=== PATIENT | female | born 1975 | race Caucasian/White ===

== ENCOUNTER 2022-08-12 11:47 | Emergency (ER) | payer OTHER, SELFPAY ==
--- NOTE | ~2022-08-12 | XR_ITS ---
XR wrist RT min 3V 08/12/2022 12:12 Indication: Right wrist pain Procedure: 4 views right wrist Comparison: No prior studies for comparison. Findings: There is an age-indeterminate nondisplaced radial styloid fracture. There is a chronic unun ited ulnar styloid fracture. Mild soft tissue swelling adjacent to the ulnar styloid. No foreign bodi es. Impression: 1: Age-indeterminate nondisplaced radial styloid fracture. 2: Chronic ununited ulnar styloid fracture. Reviewed, dictated and finalized at location B. Impression: 1: Age-indeterminate nondisplaced radial styloid fracture. 2: Chronic ununited ulnar styloid fracture.
[2022-08-12 11:57] VITALS: BP 111/71; PULSE 55; RESP 18; TEMP 36.8; O2SAT 99
--- NOTE | 2022-08-12 12:28 | PC.NURSE ---
PT DECLINED ICE FOR COMFORT
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
== END 2022-08-12 13:00 | disposition home or self-care (01) ==
PROVIDERS: Emergency Provider Registered Nurse; PCP Family Medicine
DX: S66.911A Strain of unspecified muscle, fascia and tendon at wrist and hand level, right hand, initial encounter (principal); X58.XXXA Exposure to other specified factors, initial encounter; F17.210 Nicotine dependence, cigarettes, uncomplicated; F41.9 Anxiety disorder, unspecified; I25.2 Old myocardial infarction; Z95.5 Presence of coronary angioplasty implant and graft
CPT/HCPCS: 73110; 99203; 99213; G0463

== ENCOUNTER 2025-04-24 12:35 | Emergency (ER) | payer OTHER, SELFPAY ==
--- OUTSIDE RECORDS SUMMARY | 2025-04-24 12:38 | XMS_ITS | Clinical Summary ---
Author Organization [facility] Address [address] [address] Care Team Providers Care Swing Type Lathe Operator Name Role Phone Unavailable Primary Care Provider Unavailabl e Source Comments [facility],non-owned Affiliates and Associated Physician Practices is amultiple site organization consisting of ambulatory clinics and hospital sitesin [place], [place]. This disclosure is being madepursuant to the Care Everywhere program and may not contain all information available regarding this patient. 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 Gender Identity Not on file Sexual Orientation Not on file Plan of Treatment Health Maintenance Due Date Last Done Comments COLOGUARD (AGES 45-75) - COL ON CA SCREENING 1977 COLON MONITORING 1977 COLONOSCOPY - COLON CA SCREENING 1977 CT COLONOGRAPHY - COLON CA SCREENING 1977 Colorectal Cancer Screening 1977 FIT - COLON CA SCREENING 1977 FLEX SIG - COLON CA SCREENING 1977 LIPID TESTING 1977 MAMMOGRAM 1977 HIV SCREENING 01/16/1992 HEPATITIS C SCREENING 01/11/1995 HEPATITIS B VACCINE (1 of 3 - 19+ 3-dose series) 01/16/1996 DTAP/TDAP/TD VACCINES (2 - T d or Tdap) 10/09/2021 10/10/2011 DEPRESSION SCREENING 05/03/2024 COVID-19 VACCINE (2024-2 6 season) 2025 INFLUENZA VACCINE (#1) 2025 ZOSTER VACCINE (1 of 2) 2027 HIB VACCINE Aged Out No longer eligi ble based on patient's age to complete this topic HPV VACCINE Aged Out No longer eligi ble based on patient's age to complete this topic MENINGOCOCCAL (Group B) VACC INE SHARED DECISION-MAKING Aged Out No longer eligibl e based on patient's age to complete this topic MENINGOCOCCAL GROUPS A/C/Y/W VACCINE Aged Out No longer eligible b ased on patient's age to complete this topic PNEUMOCOCCAL VACCINE Aged Out No long er eligible based on patient's age to complete this topic [facility] [employer]AN
--- OUTSIDE RECORDS SUMMARY | 2025-04-24 12:38 | XMS_ITS | Clinical Summary ---
Author Organization [facility] Address [address] [place] [address] Phone Care Team Providers Care Optical Coating Technician Name Role Phone Dex Becerra MD Primary Care Provider [phone] Allergies Active Allergy Reactions Criticality Noted Date Comments Codeine Other (see Comments) 08/07/2015 convulsions Metoprolol Other (see Comments) 08/09/2015 Loss of muscle control Medications carBAMazepine (TEGRETOL) 200 MG Tablet Take 200 mg by mouth 3 times daily. 6 Active isosorbide mononitrate (IMDUR) 60 MG TABLET SR 24 HR Take 60 mg by mouth 2 times daily. 6 Active venlafaxine (EFFEXOR) 75 MG Tablet Take 75 mg by mouth 2 times daily. 5 Active clopidogrel (PLAVIX) 75 MG Tablet Take 75 mg by mouth every 48 hours. 6 Active pantoprazole (PROTONIX) 40 MG Tablet Delayed Response Take 40 mg by mouth daily. 6 Active atorvastatin (LIPITOR) 40 MG Tablet Take 1 Tab by mouth nightly. 90 Tab 3 6 Active metoprolol tartrate (LOPRESSOR) 25 MG Tablet Take 1 Tab by mouth 2 times daily. 180 Tab 3 6 Active ondansetron (ZOFRAN) 4 MG Tablet Take 1 Tab by mouth every 8 hours as needed for Nausea. 10 Tab 0 7 Active dicyclomine (BENTYL) 20 MG Tablet Take 1 Tab by mouth every 6 hours as needed for Pain or Other (ABDOMINAL CRAMPING). 60 Tab 7 Active potassium chloride SA (KLORCON M) 20 MEQ Tablet Controlled Release Take 1 Tab by mouth 2 times daily. 60 Tab 7 Active ibuprofen (MOTRIN) 600 MG Tablet Take 1 Tab by mouth every 6 hours as needed for Pain. 40 Tab 7 Active nebivolol (BYSTOLIC) 5 MG Tablet Take 5 mg by mouth daily. Active citalopram (CELEXA) 40 MG Tablet Take 40 mg by mouth daily. Active predniSONE (DELTASONE) 10 MG Tablet Take 1 Tab by mouth daily. TAKE 4 TABLETS PO DAILY X 3 DAYS THEN TAKE 3 TABLETS PO DAILY X 3 DAYS THEN TAKE 2 TABLETS PO DAILY X 3 DAYS THEN TAKE 1 TABLET PO DAILY X 3 DAYS 30 Tab 8 Active methylPREDNISolo ne (MEDROL DOSPACK) 4 MG Tablet Therapy Pack See product package insert for dosing schedule 21 Tab 8 Active Active Problems Problem Noted Date Diagnosed Date GERD (gastroesophageal reflux disease) 6 Coronary artery disease of n ative artery of [place] heart with stable angina pectoris 08/07/2015 Essential hypertension 08/07/2015 Seizure 08/07/2015 Tobacco abuse 08/07/2015 Pneumonia due to infectious organism 08/07/2015 Family History Medical History Relation Name Comments Coronary Artery Disease Father Heart Disease Father Hypertension Father Coronary Artery Disease Mother Diabetes Mother Heart Disease Mother Hypertension Mother Relation Name Status Comments Father Mother Social History Tobacco Use Types Packs/Day Years Used Date Smoking Tobacco: Every Day Cigarettes Smokeless Tobacco: Never Alcohol Use Standard Drinks/Week Comments No 0 (1 standard drink = 0.6 oz pur e alcohol) sobriety date is 01/04/2015 Comments No Sex and Gender Information Value Date Recorded Sex Assigned at Not on file Legal Sex Female 11:39 PM CDT Gender Identity Not on file Sexual Orientation Not on file Last Filed Vital Signs Vital Sign Reading Time Taken Comments Blood Pressure 138/87 04/13/2018 1:59 PM MYSQL DEVELOPER Pulse 59 04/13/2018 12:29 PM MYSQL DEVELOPER Temperature 36.4 C (97.6 F) 04/13/2018 12:29 PM MYSQL DEVELOPER Respiratory Rate 20 04/13/2018 12:29 PM MYSQL DEVELOPER Oxygen Saturation 100% 04/13/2018 12:29 PM MYSQL DEVELOPER Inhaled Oxygen Concentration - - Weight 77.1 kg (170 lb) 04/13/2018 12:29 PM MYSQL DEVELOPER Height 165.1 cm (5' 5) 04/13/2018 12:29 PM MYSQL DEVELOPER Body Mass Index 28.29 04/13/2018 12:29 PM MYSQL DEVELOPER Plan of Treatment Health Maintenance Due Date Last Done Comments Hepatitis C Virus (HCV) Screening 1977 TdaP Immunization 1977 Hepatitis B Immunization (1 of 3 - 19+ 3-dose series) 01/16/1996 Pneumococcal Immunization Co mbined (1 of 2 - PCV) 01/16/1996 Pap Smear 1998 Cervical Cancer Screening (CCS) 2007 HPV/Cotest 2007 Cologuard 2022 Colonoscopy 2022 Colorectal Cancer Screening 2022 Immunochemical Fecal Occult Blood 2022 Influenza Immunization (#1) 2025 SARS-COV-2 Immunization ( - season) 2025 Respiratory Syncytial Virus (RSV) Immunization (Adult) (1 - 1-dose 75+ series) 01/16/2052 Human Papillomavirus (HPV) Immunization (No Doses Required) Completed Meningococcal Immunization (ACWY) Aged Out No longer eligible based on patient's age to complete this topic Rotavirus Immunization Aged Out No lo nger eligible based on patient's age to complete this topic Insurance [employer] Care Teams Optical Coating Technician Relationship Specialty Start Date End Date [place] [id number] PCP - General Internal Medicine 08/07/15
--- OUTSIDE RECORDS SUMMARY | 2025-04-24 12:38 | XMS_ITS | Clinical Summary ---
Author Organization [facility] Address [address] [place] [address] Care Team Providers Care Brick Loader Name Role Phone Dex Becerra MD Primary Care Provider [phone] Alfonso Hedrick MD Unavailable [phone] Allergies Active Allergy Reactions Criticality Noted Date Comments Atorvastatin Other (See comments) Low 12/29/2018 Muscle spasms Codeine Nausea only Medium 12/22/2006 Latex Rash Medium 09/12/2019 Metoprolol Other (See comments) Low Reaction: drops pressure to low, Medications cholecalciferol (VITAMIN D-3) 5,000 unit capsule Take 1 capsule (5,000 Units total) by mouth daily Active aspirin 81 mg enteric coated tabletIndication s:myocardial infarction prevention Take 1 tablet (81 mg total) by mouth daily 30 tablet 11 4 Active busPIRone (BUSPAR) 10 mg tabletIndication s:Generalized Anxiety Disorder Take 1 tablet (10 mg total) by mouth 3 (three) times a day 90 tablet 11 5 08/09/19 26 Active buPROPion XL (WELLBUTRIN XL) 150 mg 24 hr tabletIndication s:Generalized anxiety disorder Take 1 tablet (150 mg total) by mouth every morning 90 tablet 4 5 08/09/[address] (PROTONIX) 40 mg EC tablet Take 1 tablet (40 mg total) by mouth daily before breakfast 90 tablet 3 5 Active carBAMazepine (TEGretol) 200 mg tablet TAKE 1 TABLET BY MOUTH EVERY DAY 90 tablet 5 Active melatonin 10 mg tablet Take 1 tablet (10 mg total) by mouth nightly OTC Active albuterol HFA (PROVENTIL HFA,VENTOLIN HFA,PROAIR HFA) 90 mcg/actuation inhaler Inhale 2 puffs every 6 (six) hours as needed for wheezing 1 each 1 5 Active norethindrone (Incassia) 0.35 mg tabletIndication s:Encounter for control pills maintenance Take 1 tablet (0.35 mg total) by mouth daily 84 tablet 3 5 02/14/20 26 Active nitroglycerin (NITROSTAT) 0.4 mg SL tabletIndication s:Coronary artery disease of [place] artery of [place] heart with stable angina pectoris Place 1 tablet (0.4 mg total) under the tongue every 5 (five) minutes as needed for chest pain 30 tablet 11 5 Active nebivoloL (BYSTOLIC) 5 mg tabletIndication s:Coronary artery disease of [place] artery of [place] heart with stable angina pectoris,Hyperte nsion, essential Take 1 tablet (5 mg total) by mouth every morning 90 tablet 3 5 Active isosorbide mononitrate ER (IMDUR) 30 mg 24 hr tabletIndication s:Angina pectoris Take 3 tablets (90 mg total) by mouth daily 270 tablet 3 5 Active escitalopram (LEXAPRO) 20 mg tablet TAKE 1 TABLET BY MOUTH EVERY DAY 90 tablet 3 5 Active Active Problems Problem Noted Date Diagnosed Date Abscess of groin, left 02/13/2025 Assessment & Plan (02/13/2025 8:03 AM CDT): Abscess left groin proximally 3 cm, hard, no erythema or drainage noted. No fever or chills. No indication for I and D today. Prescribed Keflex 500 mg twice daily times 10 days. Advised warm compresses, especially overnight to encourage drainage. Follow up if abscess becomes red, increases in size or develops increased pain. Seasonal allergies 02/13/2025 Assessment & Plan (02/13/2025 8:03 AM CDT): Allergic rhinitis exacerbated by weather changes and seasonal allergies. Using Flonase and Claritin. Albuterol inhaler requested, refilled today to have on hand if needed. Lungs clear on exam. Chronic obstructive pulmonar y disease with acute exacerbation 06/22/2024 Assessment & Plan (06/22/2024 9:21 AM IT INTERN): Will start on Doxycycline and Medrol dose pack. Will continue to monitor. Decreased urine output 05/18/2024 Assessment & Plan (05/18/2024 11:43 AM IT INTERN): Flomax given to help with any inflammation. Will continue to monitor and get lab and imaging for further evaluation. Bilirubin in urine 05/18/2024 Assessment & Plan (05/18/2024 11:43 AM IT INTERN): LFT ordered will continue to monitor. Lower abdominal pain 05/18/2024 Assessment & Plan (05/18/2024 11:44 AM IT INTERN): Tramadol for pain relief sent in. Will continue to monitor. KUB, CMP, and liver function testing ordered. Acute midline low back pain without sciatica Assessment & Plan (05/18/2024 11:44 AM IT INTERN): Tramadol for pain relief given. Will continue to monitor. Dark urine 05/18/2024 Assessment & Plan (05/18/2024 11:46 AM IT INTERN): Office Visit on 05/18/2024 Component Date Value Ref Range Status Color, Urine, POC 05/18/2024 Dark Yellow Final Clarity, ur, POC 05/18/2024 Clear Clear Final Glucose, ur, POC 05/18/2024 Negative Negative MG/DL Final Bilirubin, ur, POC 05/18/2024 Small Negative, Small, Moderate, Large Final Ketones, ur, POC 05/18/2024 Trace (A) Negative Final Specific [place], POC 05/18/2024 1.030 1.003 - 1.030 Final Blood, ur, POC 05/18/2024 Negative Negative Final pH, ur, POC 05/18/2024 6.0 5.0 - 8.0 Final Protein, ur, POC 05/18/2024 30. (A) Negative Final Urobilinogen, urine, POC 05/18/2024 0.2 0.2 - 1.0 mg/dL Final Nitrite, ur, POC 05/18/2024 Negative Negative Final Leukocytes, ur, POC 05/18/2024 Negative Negative Final Lot Number 05/18/2024 [id number] Final Further testing for kidney and liver function for further evaluation Class 1 obesity due to exces s calories without serious comorbidity with body mass index (BMI) of 30.0 to 30.9 in adult 05/18/2024 Assessment & Plan (06/22/2024 8:39 AM IT INTERN): Encouraged heart healthy diet and lifestyle. Advised 150 min/week of aerobic exercise. Assessment & Plan (05/18/2024 11:46 AM IT INTERN): Encouraged heart healthy diet and lifestyle. Advised 150 min/week of aerobic exercise. Esophageal spasm 12/07/2023 Chest pain, unspecified type 09/01/2023 Assessment & Plan (12/11/2023 2:09 PM CDT): For the past 8 months ago has been having severe chest pain that would wake her up between 1-5 am in the morning, relief with nitro Currently takes pantoprazole at noon with reflux and heartburn well controlled, no dysphagia or odynophagia Working on smoking cessation Patient was recently hospitalized 09/2023 for severe chest pain where catheterization showed nonobstructive CAD. Labs at time showed normal CMP, mild leukocytosis 10.7 with macrocytosis 97.7 Previous EGD from 01/2017 showed small hiatal hernia, irregular Z-line, normal esophageal bx. Previous CT abdomen pelvis with contrast from 2017 showed mild enteritis Plan I suspect she could be having esophageal spasms from possibly inadequately controlled reflux, will do trial of baclofen 5mg QHS and schedule EGD to check for reflux disease Counseled patient on optimizing timing of PPI by taking it in the morning 30 minutes before breakfast Follow antireflux lifestyle, continue to work on smoking cessation Precordial pain 09/01/2023 Mixed hyperlipidemia 02/16/2022 Plantar fasciitis of right foot 03/19/2020 Traumatic cataract of right eye 09/12/2019 Assessment & Plan (09/12/2019 8:44 AM CDT): Has cataract surgery set 10/03/19 w/Dr Tom Bianchi at his [place] office. No contraindications to upcoming cataract surgery. Will complete paperwork & fax to Dr Casas office. Hypertension, essential 09/12/2019 Assessment & Plan (06/22/2024 8:39 AM IT INTERN): Blood pressure has been stable with no concerns. Will continue on Nebivolol, Imur, and PRN nitro. She is currently following with Dr. Hedrick who cleared her cardiac varela for surgery. Assessment & Plan (09/12/2019 8:45 AM CDT): The blood pressure is under good control. Ideally it should be under 130/80. Continue medications without adjustment. Continue efforts to eat well (4-5 fruits and veggies) daily and exercise for about 30 min nearly every day. Watch salt intake, keeping to less than 2000mg per day. Include strategies to cope with stress. Does not check BP at home. Angina pectoris 09/12/2019 Assessment & Plan (09/12/2019 8:50 AM CDT): Angina well controlled w/current imdur therapy. Hyperglycemia 09/11/2019 Assessment & Plan (09/12/2019 8:45 AM CDT): Lab Results Component Value Date HGBA1C 5.5% 09/12/2019 No diabetes. Changes in vision 06/13/2019 Assessment & Plan (06/13/2019 10:18 AM IT INTERN): Has had worsening vision. appt last week at [facility] in . Vision changes concerning for autoimmune disease. Labs ordered; will contact w/results once rec'd. Has f/u appt in 6 mos w/underwriting clerks supervisor Chest pressure 06/13/2019 Assessment & Plan (06/13/2019 10:19 AM IT INTERN): NEGATIVE EKG in office today for any ischemia. Compared to past EKGs: 06/09/16, 11/24/16 & 12/28/18. Most like 06/09/16 EKG. Discussed Worrell's esophagus/GERD/hiatal hernia as possible cause. To start PPI daily. Reviewed red flags; what would warrant ED for more emergent eval given +cardiac history. NO chest pain since Wednesday. Bilateral hand pain 03/10/2019 Assessment & Plan (06/13/2019 10:16 AM IT INTERN): Never had labs completed from 03/2019 appt. Will reorder today to check for BETZAIDA/RF d/t chronic hand pain. Cannot take NSAIDs d/t Worrell's esophagus. Assessment & Plan (03/10/2019 9:09 AM IT INTERN): H/o negative BETZAIDA/RF 2016. Reordered BETZAIDA/RF; will contact w/results once rec'd. Cannot take NSAIDs d/t ulcers. Discussed paraffin dips at nail salons; may be helpful for wrist/hand pain also. Chronic wrist pain 03/10/2019 Assessment & Plan (06/13/2019 10:16 AM IT INTERN): Never had labs completed from 03/2019 appt. Will reorder today to check for BETZAIDA/RF d/t chronic hand pain. Cannot take NSAIDs d/t Worrell's esophagus. Assessment & Plan (03/10/2019 9:09 AM IT INTERN): H/o negative BETZAIDA/RF 2016. Reordered BETZAIDA/RF; will contact w/results once rec'd. Cannot take NSAIDs d/t ulcers. Discussed paraffin dips at nail salons; may be helpful for wrist/hand pain also. Breast cancer screening 01/05/2019 Assessment & Plan (06/12/2019 10:09 AM IT INTERN): Mamm scheduled 06/14/19 at [facility] Assessment & Plan (01/05/2019 8:44 AM CDT): Mammogram order given; will call with results when received. Encouraged to perform monthly SBE. Generalized anxiety disorder 01/05/2019 Assessment & Plan (09/12/2019 8:46 AM CDT): Reports good control of anxiety w/current regimen. No changes to be made at this time. lexapro 10 mg refill sent. Reviewed med Ses & scheduling. Reviewed red flags. Assessment & Plan (06/13/2019 10:15 AM IT INTERN): Reports good control of anxiety w/current regimen. No changes to be made at this time. Reviewed med Ses & scheduling. Reviewed red flags. Assessment & Plan (03/10/2019 9:07 AM IT INTERN): Reports good control of anxiety w/current regimen. No changes to be made at this time. escitalopram 10mg refill sent. Reviewed med Ses & scheduling. Reviewed red flags. Assessment & Plan (01/05/2019 9:00 AM CDT): Discussed different types of medications & their Ses/MOA. escitalopram 10 mg daily sent. To take 1/2 tab for 1st 8 days then increase to full tab. To make f/u appt in 5-6 weeks. Aware that it may take up to 4 weeks to notice effects & 6-8 weeks to feel full effects. Reviewed main Ses of GI upset & CASTRO Reviewed red flags; aware to call office/911 if thoughts of harming self/others. To stop medications immediately in that instance. Internal derangement of left knee 06/02/2018 Primary osteoarthritis of left knee 06/02/2018 Vitamin D deficiency 05/24/2018 Assessment & Plan (09/12/2019 8:42 AM CDT): Last vitamin D=9. Started on ergocalciferol 50,000IU daily. Has not been taking vitamin D. Only took x4 weeks. Will resume ergocalciferol & recheck D level in 3 mos. Advise to get 10 min of sun exposure to the hands and face 2-3 days of the week to boost Vit D levels. Assessment & Plan (06/13/2019 10:15 AM IT INTERN): Does not take vitamin D The blood level will be checked today. Advise to get 10 min of sun exposure to the hands and face 2-3 days of the week to boost Vit D levels. Abnormal uterine bleeding (AUB) 08/06/2017 Assessment & Plan (06/27/2024 6:28 PM IT INTERN): AUB described as menses q2 weeks with associated symptoms of migraines, cramping, and N/V Reviewed potential for perimenopause as a contributor for her AUB Currently on POPs, for the past 5-6 yrs EMB performed 2022 and benign; patient declines any additional office based EMB based on pain control issues with her EMB, even after recommending EMB given persistent AUB while on contraception and in preparation for hysterectomy Reviewed options for management of AUB including alternative medications, procedure based interventions, and definitive management with hysterectomy Pt strongly desires hysterectomy Reviewed different routes of approach, decision around oophorectomy, and post-operative expectations Given patients medical co-morbidities, which I reviewed extensively with her, plan for pre-operative clearance with her chemical test engineer and PCP, which she completed since her last visit Reviewed surgery clearance by PCP Communicated with Dr. Hedrick over MyChart about patients cardiac hx and plan to hold ASA as usual 5 days prior to surgery Assessment & Plan (06/15/2024 5:04 PM IT INTERN): AUB described as menses q2 weeks with associated symptoms of migraines, cramping, and N/V Reviewed potential for perimenopause as a contributor for her AUB Currently on POPs, for the past 5-6 yrs EMB performed 2022 and benign; patient declines any additional office based EMB based on pain control issues with her EMB, even after recommending EMB given persistent AUB while on contraception and in preparation for hysterectomy Reviewed options for management of AUB including alternative medications, procedure based interventions, and definitive management with hysterectomy Pt strongly desires hysterectomy Reviewed different routes of approach, decision around oophorectomy, and post-operative expectations Given patients medical co-morbidities, which I reviewed extensively with her, plan for pre-operative clearance with her chemical test engineer and PCP. Reviewed risks of surgery and anesthesia especially given medical cormorbities. 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 Quit smoking 01/2019 & has recently been eating poorly d/t long working hours. We will check labs and make adjustments to medications as needed. Patient should focus on limiting bad fats in the diet and using exercise as a way to improve the lipid status. Secondary prevention. Reviewed medications. Lipid panel ordered; will call w/results when rec'd. Denies any statin Ses. Reviewed diet/exercise recommendations. Reviewed red flags. Assessment & Plan (06/13/2019 9:00 AM IT INTERN): 05/25/18 he=334 hdl=38 nu=919 htq=986 06/13/19 CJ=009 HDL=55 TG=59 XFW=537 TC/HDL=3.2 HNS=102 Improvement in lipid panel since last 05/2018. Seizure 08/07/2015 Assessment & Plan (02/13/2025 8:03 AM CDT): Continues tegretol 100 mg daily. Last seizure >10 years ago. Patient with a history of head injuries and memory issues. Uncertain about continuing carbamazepine instructed to continue carbamazepine without change. Can consider referral to Neurology for evaluation of epilepsy management and necessity of continuing medications. Assessment & Plan (09/12/2019 8:44 AM CDT): No recent seizure activity. Taking medications as ordered. Worrell's esophagus 09/16/2013 Overview (08/07/2016): WORRELL'S ESOPHAGUS Assessment & Plan (09/12/2019 8:48 AM CDT): Has been using nexium w/o improvement. Pantoprazole 40mg sent. Reviewed med SE & scheduling. Reviewed provocative foods to avoid: caffeine, citrus, ETOH, carbonated drinks, fried/fatty/fast foods & rich/creamy sauces. Reviewed diet/exercise recommendations: 20-30min physicaly activity daily at minimum. Reviewed med Ses & scheduling. Weight loss will help improve GERD sxs. Keep HOB elevated 30 degrees & not eat 2-3 hrs before bedtime. Assessment & Plan (06/13/2019 10:14 AM IT INTERN): To start PPI daily. Reviewed provocative foods to avoid: caffeine, citrus, ETOH, carbonated drinks, fried/fatty/fast foods & rich/creamy sauces. Reviewed diet/exercise recommendations: 20-30min physicaly activity daily at minimum. Reviewed med Ses & scheduling. Weight loss will help improve GERD sxs. Keep HOB elevated 30 degrees & not eat 2-3 hrs before bedtime. Non-ST elevation (NSTEMI) myocardial infarction 10/04/2012 Epilepsy 10/04/2012 Chronic migraine without aur a without status migrainosus, not intractable Resolved Problems Problem Noted Date Diagnosed Date Resolved Date Preoperative exam for gynecologic surgery 06/27/2024 02/13/2025 Assessment & Plan (06/27/2024 6:28 PM IT INTERN): Procedure: Plan for EUA, TLH, BS, potential for oophorectomy pending on appearance of ovaries, RO cystectomy vs oophorectomy, BS, and all other indicated procedures Consent: In general discussed the risks of surgery including pain, bleeding with possible need for blood transfusion, infection with possible need for antibiotics, injury to surrounding structures, and possible need for additional surgery or hospitalization. Additionally, we discussed the general risks of surgery and anesthesia. Counseling regarding preoperative management: We reviewed her medical problems and recommend, - Preoperative evaluation with CPAP - Major surgery: EKG, CBC, CMP, PT/PTT We reviewed her current medications - HTN: Continue imdur, bystolic, and nitroglycerin PRN - Seizure disorder: continue tegretol - Mood: continue SSRI - Anticoagulation: hold ASA 5 days prior to surgery Counseling regarding perioperative management: ERAS protocol reviewed Advised to drink 12oz non-red electrolyte drink Shower night before. NPO after midnight on day of surgery. No ASA or NSAIDs for at least 5 days prior to surgery Advised to arrive to hospital no later than 2 hours prior to scheduled procedure. Counseled about need to have responsible adult take patient home after surgery. Advised no makeup, jewelry, or nail bermudian on day of surgery Recommended to complete living will/medical power of aerial photogrammetrist. Counseling regarding postoperative management: Post-operative pain control to include scheduled tylenol and ibuprofen, with PRN usage of roxicodone Post-operative restrictions include: pelvic rest for 6 weeks and no heavy lifting Plan for convalescent leave of 6 weeks First post-operative appointment 2 weeks following surgery All questions were answered and the patient voiced understanding. Preop examination 06/22/2024 02/13/2025 Assessment & Plan (06/22/2024 8:40 AM IT INTERN): Surgically cleared to get hysterectomy and ovarian cyst removal. Not on blood thinner or diabetic medications. Will continue to monitor. Acute bronchitis due to othe r specified organisms 06/22/2024 06/22/2024 Assessment & Plan (06/22/2024 9:20 AM IT INTERN): Will start on Doxycycline and Medrol dose pack. Will continue to monitor. Strain of right wrist 03/30/20232024 Weight gain 03/18/2020 02/13/2025 BMI 31.0-31.9,adult 09/12/2019 06/22/19 25 Assessment & Plan (09/12/2019 8:48 AM CDT): Reviewed need to lose weight, reviewed health benefits. Reviewed recommendations for daily intake & activity 20-30 minutes/day. Discussed healthy diet and importance of regular physical activity. Has been walking dog nearly every night for 1-1.5 mi. BMI 30.0-30.9,adult 06/13/2019 09/12/19 20 Assessment & Plan (06/13/2019 10:16 AM IT INTERN): Reviewed need to lose weight, reviewed health benefits. Reviewed recommendations for daily intake & activity 20-30 minutes/day. Discussed healthy diet and importance of regular physical activity. BMI 27.0-27.9,adult 03/10/2019 06/13/19 20 Assessment & Plan (03/10/2019 9:09 AM IT INTERN): Discussed healthy diet and importance of regular physical activity. Reviewed need to lose weight, reviewed health benefits. Reviewed recommendations for daily intake & activity 20-30 minutes/day. Ear canal abrasion, right, initial encounter 9 06/13/2019 Assessment & Plan (03/10/2019 9:10 AM IT INTERN): Instructed to NOT insert anything into ear canal. Discussed warm water rinses during shower. No signs of infection. TM WNL. No pain/tenderness. Carbuncle and furuncle of buttock 01/05/2019 06/13/2019 Assessment & Plan (01/05/2019 9:13 AM CDT): Bactrim ds bid x 10 days sent. Reviewed abx Ses & scheduling. Discussed skin care. Discussed possibility for I&D if no improvement w/abx. Ibuprofen/tylenol prn pain. Discussed cool compress may help w/pain. Reviewed red flags; what would warrant rtc or ED for more emergent eval (streaking, f/c, increase pain/swelling). hibiclens to area. Not to squeeze, try to express area. Refused influenza vaccine 05/24/2018 Assessment & Plan (03/10/2019 9:07 AM IT INTERN): Discussed and the patient refuses immunization today. Educated regarding the need to vaccinate for personal protection and to limit the viruses in the community to protect those most vulnerable. Assessment & Plan (01/05/2019 8:44 AM CDT): Discussed and the patient refuses immunization today. Educated regarding the need to vaccinate for personal protection and to limit the viruses in the community to protect those most vulnerable. Epidermoid cyst 03/02/2018 06/13/2019 Overview (03/02/2018): Added automatically from request for surgery [id number] Skin neoplasm 03/02/2018 06/13/2019 Overview (03/02/2018): Added automatically from request for surgery [id number] Tobacco dependence due to cigarettes 02/28/2018 03/10/2019 Assessment & Plan (01/05/2019 8:44 AM CDT): Precontemplative. Encouraged complete smoking cessation. Discussed different types of medications & [id number]-[id number] aides to help with cessation. Has decreased to 1/2 PPD. Bronchitis 03/10/2016 06/13/2019 Overview (08/07/2016): Bronchitis Chest pain 06/13/2019 Encounters Date Type Department Care Team Description 02/20/2025 2:31 PM CDT - 02/20/2025 11:59 PM CDT Hospital Encounter [facility] - Ultrasound [address] [place] [address], 7th Floor, [address] [place] [address] Chronic pelvic pain in female Discharge Disposition: Discharge to home or self care 02/20/2025 Results Follow-Up [facility] Medicine Obstetrics and Gynecology [address] [place] [address] 7th Floor [address] [place] [address] Stefanie Valles Rai, NP US Pelvis Complete 02/13/2025 2:45 PM CDT Office Visit [facility] at [address] [place] [address] Radha Head NP Coronary artery disease of [place] artery of [place] heart with stable angina pectoris (Primary Dx); Mixed hyperlipidemia; Hypertension, essential; Angina pectoris 02/13/2025 10:20 AM CDT Office Visit [facility] Medicine Obstetrics and Gynecology [address] [place] [address] 7th [address] [place] [address] Stefanie Valles Rai, NP Encounter for well woman exam with routine gynecological exam (Primary Dx); Encounter for control pills maintenance; Chronic pelvic pain in female 02/13/2025 7:30 AM CDT Office Visit [facility] [address] [place] [address] Neli Mitchell NP Abscess of groin, left (Primary Dx); Seizure disorder (HCC); Seasonal allergies; Encounter for screening mammogram for breast cancer; BMI 27.0-27.9,adult 02/08/2025 Telephone [facility] [address] [address] Dex Becerra MD from Last 3 Months Immunizations Immunization Administration Dates Next Due Influenza, Quadrivalent, Spl it, Preservative Free, Intramuscular 03/21/2015 Influenza, Trivalent, Preser vative Free, Intramuscular 04/11/2014 Influenza, Unspecified 06/22/2024(Deferr ed: Patient Refused),05/18/2024(Deferred: Patient Refused),05/18/2024(Deferred: Patient Refused),01/02/2024(Deferred: Patient Refused),01/02/2024(Deferred: Patient Refused),01/02/2024(Deferred: Patient Refused),01/19/2023(Deferred: Patient Refused),01/01/2022(Deferred: Patient Refused),05/27/2021(Deferred: Patient Refused),05/19/2021(Deferred: Patient Refused),04/09/2020(Deferred: Patient Refused),02/01/2020(Deferred: Patient Refused),02/01/2020(Deferred: Patient Refused),09/12/2019(Deferred: Patient Refused),06/13/2019(Deferred: Patient Refused),03/10/2019(Deferred: Patient Refused),01/05/2019(Deferred: Patient Refused),06/27/2018(Deferred: Patient Refused),06/27/2018(Deferred: Patient Refused),05/24/2018(Deferred: Patient Refused),05/24/2018(Deferred: Patient Refused),05/03/2018(Deferred: Patient Refused),05/03/2018(Deferred: Patient Refused),02/28/2018(Deferred: Patient Refused),02/28/2018(Deferred: Patient Refused),11/26/2017(Deferred: Patient Refused),05/06/2017(Deferred: Patient Refused),05/04/2017(Deferred: Patient Refused),05/03/2017(Deferred: Patient Refused),05/03/2017(Deferred: Patient Refused),05/03/2017(Deferred: Patient Refused),05/04/2016(Deferred: Patient Refused),05/04/2016(Deferred: Patient Refused),05/03/2016(Deferred: Patient Refused) TD Preservative Free 10/10/2011,10/10/2011 Surgical History Surgery Date Site/Laterality Comments OTHER SURGICAL HISTORY IUD: amenorrhea OTHER SURGICAL HISTORY Cholelithiasis: Lap cholecystectomy OTHER SURGICAL HISTORY alcohlism: [facility] LEG SURGERY 02/12/2017 Left tibia and fibula repair, plates and 8 screws in left leg OTHER SURGICAL HISTORY 05/03/1996 - 05/02/1997 Right Repair of right wrist ANGIOPLASTY Heart Stent x 1 12 yrs ago BREAST CYST EXCISION cyst removed left breast 2018 CHOLECYSTECTOMY UPPER GASTROINTESTINAL ENDOSCOPY COLONOSCOPY CATARACT EXTRACTION EXTRACAPSULAR W/ INTRAOCULAR LENS IMPLANTATION 05/03/2018 - 05/02/2019 Right CARDIAC CATHETERIZATION 09/01/2023 FRACTURE SURGERY 02/09/2017 Medical History Medical History Date Comments Hx Other Medical 2007 IUD Cholelithiasis 2010 Cholelithiasis Hx Other Medical 01/2015 alcohlism; Comm ents: ROBERTO 05/21/2015 - 09-7 thru 01-25-2015 Cervical cancer (HCC) age 23 Smoking Coronary artery disease Worrell esophagus Seizure (HCC) Hiatal hernia 2017 Tobacco dependence due to cigarettes 02/28/2018 Epidermoid cyst 03/02/2018 Added automatica lly from request for surgery [id number] Skin neoplasm 03/02/2018 Added automatica lly from request for surgery [id number] Colon polyp Concussion at age 39 after fall and hit, 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 GERD (gastroesophageal reflu x disease) Heart disease Hypertension Arthritis Brain concussion Migraines Ovarian cyst Family History Medical History Relation Name Comments Allergy (severe) Father No Arthritis Father No Asthma Father No Cancer Father No Cataracts Father No Coronary artery disease Father No [place] nary artery disease; Heart disease Father No Prostate cancer Father No Vascular Disease Father No Breast cancer Father's Sister Clementine Cataracts Mother No Diabetes Mother No Heart disease Mother No Hypertension Mother No Other Mother No Breast cancer Other Aunt - fathers side Relation Name Status Comments Father No Alive Father's Sister Clementine Alive Mother No Alive Other Aunt - fathers side breast c ancer Social History Tobacco Use Types Packs/Day Years Used Date Smoking Tobacco: Every Day Cigarettes 1 2 Started: 2023; Last attempted to quit: 01/24/2019 Smokeless Tobacco: Former Tobacco Cessation:Ready to Q uit: Not Asked; Counseling Given: Not Answered Comments:states she is trying to quit, states she is about a 1/2 pack a day now. 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 Social Connection and Isolation Panel Answer Date Recorded Frequency of Communication with Friends and Fami ly Not on file 03/21/2019 Frequency of Social Gatherings with Friends and Family Not on file 03/21/2019 Attends Hoahaoism Services Not on file 03/21 Active Member of Clubs or Organizations Not on f ile 03/21/2019 Attends Club or Organization Meetings Not on mark e 03/21/2019 Marital Status 03/21/2019 PHQ-2 Answer Date Recorded PHQ-2 Total Score (If total score is 3 or more points, staff should administer the PHQ-9) 0 02/13/2025 Exercise Vital Sign Answer Date Recorde d Days of Exercise per Week 0 days 2018 Minutes of Exercise per Session 0 min 03/21/2019 AUDIT-C Answer Date Recorded Q1: How often do you have a drink containing alcohol? Never 02/13/2025 Q2: How many drinks containi ng alcohol do you have on a typical day when you are drinking? Patient does not drink Q3: How often do you have si x or more drinks on one occasion? Never 02/13/2025 Personal Safety Answer Date Recorded Have you ever been in or are you currently in a harmful physical or emotional relationship or is someone making you feel afraid or unsafe? Denies 02/04/2024 Comments No Sex and Gender Information Value Date Recorded Sex Assigned at Not on file Legal Sex Female 11:50 PM IT INTERN Gender Identity Not on file Sexual Orientation Straight 09/12/2019 7: 46 AM CDT Obstetrics History Para Term AB IAB SAB Ectopic Multiple Livin g Live Births 1 1 0 1 Date Outcome GA Total Labor Labor/2nd/3rd Weight Sex Type Anes PTL Beth A1 A5 Name Clin Demise Last Filed Vital Signs Vital Sign Reading Time Taken Comments Blood Pressure 116/78 02/13/2025 2:43 PM CDT Pulse 57 02/13/2025 2:43 PM CDT Temperature 36.6 C (97.8 F) 02/13/2025 7:25 AM CDT Respiratory Rate 18 02/13/2025 7:25 AM CDT Oxygen Saturation 98% 02/13/2025 7:25 AM CDT Inhaled Oxygen Concentration - - Weight 75.3 kg (166 lb) 02/13/2025 2:43 PM CDT Height 165.1 cm (5' 5) 02/13/2025 2:43 PM CDT Body Mass Index 27.62 02/13/2025 2:43 PM CDT Plan of Treatment Health Maintenance Due Date Last Done Comments Hepatitis B Screening 1995 Pneumococcal vaccine <65 (1 of 2 - PCV) 01/16/1996 DTaP/Tdap/Td Vaccine (1 - Tdap) 10/11/2011 2, 10/10/2011 Breast Cancer Screening-Mammogram 10/13/2022 10/13/2021, 06/14/2019, 06/19/2017 Cervical Cancer Screening 02/03/20252023, 02/04/2024, 09/04/2021, Additional history exists Depression Screening 02/13/2026 02/13/2025, 06/22/2024, 05/18/2024, Additional history exists Regular Well Visit/Exam 18-64 02/13/2026, 02/04/2024, 09/08/2022, Additional history exists Colon Cancer Screening-Colonoscopy 01/29/2027 01/29/2017, 01/29/2017 Influenza Vaccine Discontinued 03/21/2015, 04/11/2014 Hepatitis C Screening Completed 04/27/2024 , 11/10/2022, 10/09/2021, Additional history exists Procedures Procedure Name Priority Date/Time Associated Diagnosis Comments US PELVIS COMPLETE Schedule Routine, Read Routine (OP Routine) 02/20/2025 2:31 PM CDT Chronic pelvic pain in female HEPATITIS C ANTIBODY Routine 04/27/2024 4:05 PM IT INTERN Routine screening for STI (sexually transmitted infection) HIGH RISK HPV DNA DETECTION WITH GENOTYPING Routine 02/04/2024 4:11 PM CDT Cervical cancer screening DIAGNOSTIC MAMMOGRAM BILATERAL W GREG Schedule Routine, Read Routine (OP Routine) 10/13/2021 4:10 PM CDT Mass of right breast, unspecified quadrant COLONOSCOPY REPORT 01/29/2017 from Last 3 Months or Most Recently Relevant to Health Maintenance Results * US Pelvis Complete (02/20/2025 2:31 PM CDT) Cul de Sac No free fluid visualized VIEWPOINT Endometrial Thickness 2.6 mm&millim eters VIEWPOINT Anatomical Region Laterality Modality Pelvis N/A Ultrasound 02/20/2025 2:48 PM CDT Impressions 02/20/2025 3:47 PM CDT The uterus is anteverted and normal in size. The endometrial stripe measures 2.6 mm. There is one anterior fibroid. Normal small right ovary. Left ovary contains a simple anechoic cyst without flow, ORADS 2. There was no evidence of free fluid in the pelvis. Narrative Procedure Note Andria Smtih MD - 02/20/2025 IMPRESSION: The uterus is anteverted and normal in size. The endometrial stripemeasures 2.6 mm. There is one anterior fibroid. Normal small right ovary.Left ovary contains a simple anechoic cyst without flow, ORADS 2. Therewas no evidence of free fluid in the pelvis. Stefanie Valles NP IMG US PROCEDURES Final Result * Hepatitis C antibody Blood (04/27/2024 4:05 PM IT INTERN) Hep C Ab Nonreactive Nonreactive Comment: Interpretive Data Nonreactive: Antibodies to HCV not detected. Does NOT exclude the possibility of recent exposure to HCV. Equivocal: Equivocal for HCV antibodies. Supplemental molecular testing will be automatically performed to determine infection status in accordance with current CDC screening recommendations. Reactive: Positive for HCV antibodies. This may represent current or past HCV infection. Supplemental molecular testing will be automatically performed to determine current infection status in accordance with current CDC screening recommendations. Interpretive data was last revised on 2019. Testing performed by: [facility], [address] [place] [address], [place]., [address] Blood 04/27/2024 4:05 PM IT INTERN 04/28/2024 10:03 AM IT INTERN us Jennifer Forrester NP LAB MICROBIOLOGY - GEN ERAL ORDERABLES Final Result [facility] [place] [address] * High Risk HPV DNA Detection with Genotyping (Molecular component) (02/04/2024 4:11 PM CDT) HPV HR 16 Not Detected Not Detected [facility] HPV HR 18 Not Detected Not Detected [facility] HPV HR Non 16/18 Not Detected Not Detected [facility] Comment: Interpretive Data Nucleic acid amplification for detection of high-risk Human Papilloma virus (HPV) is performed by the Sachin Yolanda 6800 HPV test. This assay specifically detects HPV-16 and HPV-18 genotypes. The following HPV genotypes are detected as high-risk HPV: HPV-31, 33, 35, ,39, 45, 51, 52, 56, 58, 59, 66, and 68. This assay has been approved by the [place] Food and Drug Administration for detection of HPV in cervical specimens collected by a physician using an endocervical brush/spatula or cervical broom and placed in the ThinPrep Pap Test PreservCyt collection containers. The performance characteristics of this test have been verified by the [facility] Molecular Infectious Disease laboratory. Correlate with separately reported cytology results, as applicable. Interpretive data last revised 22 Endocervical 02/04/2024 4:11 PM CDT 02/07/2024 9:02 AM CDT Narrative MEETA CALABRESE - 02/07/2024 9:46 PM CDT Clinical history and diagnosis->screening Number of vials->1 Testing type->Screening Last menstrual period (date if known)->01/21/24 us Jennifer Forrester HOSPITAL ADMITTING CLERK LAB BODY FLUIDS AND ST OOLS ORDERABLES Final Result [facility] Department [place] [address] [facility] * Diagnostic Mammogram Bilateral W Greg (10/13/2021 4:10 PM CDT) Anatomical Region Laterality Modality Breast Bilateral Mammography 10/13/2021 5:44 PM CDT Impressions 10/13/2021 5:44 PM CDT Intradermal complicated cyst consistent with a sebaceous cyst. Appropriate clinical management is advised. OVERALL FINAL ASSESSMENT: BI-RADS Category 2: Benign. RECOMMENDATION: Continued clinical follow-up is recommended. Annual mammography recommended. Electronically signed by: Niru Regan M.D. Narrative 10/13/2021 5:44 PM CDT EXAMINATION: BILATERAL DIGITAL DIAGNOSTIC MAMMOGRAM INCLUDING CAD AND BILATERAL DIGITAL BREAST TOMOSYNTHESIS; RIGHT BREAST SONOGRAM HISTORY: Right breast lump COMPARISON: Priors dating back to 2018 TECHNIQUE: Full field digital mammographic views of BOTH breasts were performed, including computer aided detection (CAD) and BILATERAL digital breast tomosynthesis (DBT). Directed ultrasound evaluation of the RIGHT breast was performed. BREAST PARENCHYMAL COMPOSITION: There are scattered areas of fibroglandular density. MAMMOGRAM FINDINGS: There is no new suspicious abnormality in either breast. There is no mammographic abnormality in the area of palpable concern indicated by the triangular marker in the right upper outer breast. SONOGRAM FINDINGS: Right breast, 9:00 12 cm from the nipple, in the area of palpable concern indicated by the patient, there is a 0.9 cm intradermal complicated cyst. Procedure Note Niru Regan MD - 10/13/2021 EXAMINATION: BILATERAL DIGITAL DIAGNOSTIC MAMMOGRAM INCLUDING CAD AND BILATERAL DIGITAL BREAST TOMOSYNTHESIS; RIGHT BREAST SONOGRAM HISTORY: Right breast lump COMPARISON: Priors dating back to 2018 TECHNIQUE: Full field digital mammographic views of BOTH breasts were performed, including computer aided detection (CAD) and BILATERAL digital breast tomosynthesis (DBT). Directed ultrasound evaluation of the RIGHT breast was performed. BREAST PARENCHYMAL COMPOSITION: There are scattered areas of fibroglandular density. MAMMOGRAM FINDINGS: There is no new suspicious abnormality in either breast. There is no mammographic abnormality in the area of palpable concern indicated by the triangular marker in the right upper outer breast. SONOGRAM FINDINGS: Right breast, 9:00 12 cm from the nipple, in the area of palpable concern indicated by the patient, there is a 0.9 cm intradermal complicated cyst. IMPRESSION: Intradermal complicated cyst consistent with a sebaceous cyst. Appropriate clinical management is advised. OVERALL FINAL ASSESSMENT: BI-RADS Category 2: Benign. RECOMMENDATION: Continued clinical follow-up is recommended. Annual mammography recommended. Electronically signed by: Niru Regan M.D. Bev Samaniego NP IMG MAMMO PROCEDURES Final Result * COLONOSCOPY REPORT (01/29/2017) Anatomical Region Laterality Modality Other Provider Scanning GI PROCEDURE ORDERABLES Final Result from Last 3 Months or Most Recently Relevant to Health Maintenance Insurance Member Subscriber Plan / Payer ( fective 2025-Present) Name:Donya Alfonso Relation to Subscriber:Self Name:Donya Alfonso Payer ID:[id number] (NAIC) Group ID:Not on file Type:MEDICAID RISK OTHER Address: [place] [id number] Advance Directives For more information, please contact: [phone] * Full Code (Latest Code Status on File) Date Activated Date Inactivated Comments 02/04/2024 9:17 AM 02/04/2024 3:36 PM * Full Code Date Activated Date Inactivated Comments 02/04/2024 9:17 AM 02/04/2024 9:17 AM * Full Code Date Activated Date Inactivated Comments 09/01/2023 11:30 AM 09/01/2023 11:03 PM * Full Code Date Activated Date Inactivated Comments 12/28/2018 11:52 AM 12/29/2018 8:00 PM Care Teams Brick Loader Relationship Specialty Start Date End [place] [address] PCP - General 07/31/16 Alfonso Hedrick MD [address] [place] [address] Consulting Physician Cardiology 12/29/18
--- OUTSIDE RECORDS SUMMARY | 2025-04-24 12:38 | XMS_ITS | Encounter Summary ---
Author Organization [facility] Address [address] [place] [address] Phone Care Team Providers Care Market Research Intern Name Role Phone Dex Becerra MD Primary Care Provider [phone] Alfonso Hedrick MD Unavailable [phone] Encounter Details Date Type Department Care Team (Latest Contact Info) Description 08/11/2017 Orders Only [facility] CONVERSION Scanning, Provider Social History Tobacco Use Types Packs/Day Years Used Date Smoking Tobacco: Heavy Smoker Cigarettes Smokeless Tobacco: Never Comments:Smoking History Pac ks/day: 1 Packs Alcohol Use Standard Drinks/Week Comments No 0 (1 standard drink = 0.6 oz pur e alcohol) Comments No Sex and Gender Information Value Date Recorded Sex Assigned at Not on file Legal Sex Female 11:50 PM NET DEVELOPER ARCHITECT Gender Identity Not on file Sexual Orientation Straight 09/12/2019 7: 46 AM CDT documented as of this encounter Plan of Treatment Not on file documented as of this encounter Procedures Procedure Name Priority Date/Time Associated Diagnosis Comments OBSTETRIC/GYNECOLOGY ULTRASONOGRAPHY REPORT 08/11/2017 3:33 PM CDT documented in this encounter Results * OBSTETRIC/GYNECOLOGY ULTRASONOGRAPHY REPORT (08/11/2017 3:33 PM CDT) Anatomical Region Laterality Modality Ultrasound us Provider Scanning IMG OB US PROCEDURES Final Res ult documented in this encounter Visit Diagnoses Not on filedocumented in this encounter Additional Health Concerns Infection Onset Date Last Indicated Resolved Time COVID: Suspected 10/30/2021 10/30/2021 10/30/2021 12:30 PM CDT COVID19 10/30/2021 10/30/2021 11/09/2021 3:05 AM CDT COVID: Recovered Comment:Added based on recent COVID infection. 11/09/2021 12/01/2021 03/09/2022 3:[address] COVID: Suspected 05/11/2023 05/11/2023 05/11/2023 2:12 PM NET DEVELOPER ARCHITECT COVID: Suspected 05/11/2023 05/11/2023 05/11/2023 6:49 PM NET DEVELOPER ARCHITECT documented as of this encounter Care Teams Market Research Intern Relationship Specialty Start Date End Date Dex Becerra MD [address] [place] [address] PCP - General 07/31/16 Alfonso Hedrick MD [address] [place] [address] Consulting Physician Cardiology 12/29/18 documented as of this encounter
--- OUTSIDE RECORDS SUMMARY | 2025-04-24 12:38 | XMS_ITS | Encounter Summary ---
Author Organization [facility] Address [address] [place] [address] Phone Care Team Providers Care Streets And Buildings Decorator Name Role Phone Dex Becerra MD Primary Care Provider [phone] Alfonso Hedrick MD Unavailable [phone] Encounter Details Date Type Department Care Team (Late st Contact Info) Description 02/20/2025 Results Follow-Up [facility] Medicine Obstetrics and Gynecology [address] [facility] 7[address] [place] [address] [place], NP [address] [facility] [address] [place] [address] US Pelvis Complete Social History Tobacco Use Types Packs/Day Years Used Date Smoking Tobacco: Every Day Cigarettes 1 2 Started: 2023; Last attempted to quit: 01/24/2019 Smokeless Tobacco: Former Comments:states she is tryin g to quit, states she is about a [...] and Family Not on file 03/21/2019 Attends Church Services Not on file 03/21 Active Member [...] on file Legal Sex 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
[2025-04-24 13:06] LABS: EDUAAPPEAR Clear; EDUABILI Negative (Negative); EDUABLOOD Negative (Negative); EDUACOLOR1 Yellow; EDUAGLUCOSE Negative (Negative); EDUAKETONE Negative (Negative); EDUALEUKO Negative (Negative); EDUANITRATE Negative (Negative); EDUAPH 7.0; EDUAPROTEIN Negative (Negative); EDUASPGRAVITY 1.010; EDUAUROBILI 0.2
[2025-04-24 13:41] VITALS: BP 104/66; PULSE 56; RESP 16; TEMP 36.2; O2SAT 99
--- NOTE | 2025-04-24 13:43 | ED.BACK ---
HPI - Back Pain/Injury General Chief Complaint: Urogenital-Female Stated Complaint: back pain/started on right side Time Seen by Provider: 04/24/25 13:30 Source: patient and RN notes reviewed Mode of arrival: ambulatory Limitations: no limitations History of Present Illness HPI Narrative: 50-year-old female patient presents Express Care complaining of bilateral flank pain started last couple days ago. Patient denies any falls or injuries. Patient has the pain isn't worse with movements. Patient says the pain comes and goes, sometimes feels a sharp stabbing sensation, she reports the pain is worse on the right than the left. Patient also reports nausea and malodorous urine but denies any other urinary symptoms. Patient has any vomiting, diarrhea, abdominal pain, chest pain, breathing problems, upper respiratory symptoms, fevers, body aches, chills, or other symptoms. Patient has any significant past medical history, she reports she has a history of a cholecystectomy. Related Data Home Medications ?Medication ?Instructions ?Recorded ?Confirmed ?Last Taken ?Type escitalopram oxalate 20 mg tablet 20 mg PO DAILY 08/12/22 08/12/22 Unknown History isosorbide mononitrate 30 mg 90 mg PO DAILY 08/12/22 08/12/22 Unknown History tablet,extended release 24 hr nebivolol 5 mg tablet 5 mg PO DAILY 08/12/22 08/12/22 Unknown History norethindrone (contraceptive) 0.35 0.35 mg PO DAILY 08/12/22 08/12/22 Unknown History mg tablet (Incassia) albuterol sulfate 90 mcg/actuation inhalation 04/24/25 Unknown History aerosol inhaler bupropion HCl 150 mg 24 hr tablet, mg PO 04/24/25 Unknown History extended release buspirone 10 mg tablet mg 04/24/25 Unknown History carbamazepine 200 mg tablet mg 04/24/25 Unknown History nitroglycerin 0.4 mg sublingual mg 04/24/25 Unknown History tablet Allergies Allergy/AdvReac Type Severity Reaction Status Date / Time codeine AdvReac Unknown Nausea and Verified 04/24/25 12:47 Vomiting metoprolol AdvReac Unknown LOSS OF Verified 04/24/25 12:47 MUSCLE CONTROL tramadol AdvReac Unknown Seizure Verified 04/24/25 12:47 Review of Systems Review of Systems: CONSTITUTIONAL: Denies fever, chills, or sweats. EYES: Denies visual changes, redness, or discharge. ENT: Denies rhinorrhea, congestion, sore throat, or otalgia. CARDIOVASCULAR: Denies chest pain, palpitations, or edema. RESPIRATORY: Denies cough or dyspnea. GASTROINTESTINAL: Denies abdominal pain, vomiting, or diarrhea. Positive for nausea GENITOURINARY: Denies dysuria, vaginal bleeding vaginal discharge or hematuria. Positive for malodorous urine. SKIN: Denies rash or itching. MUSCULOSKELETAL: Positive for flank pain. Denies back pain, joint pain, or myalgia. NEUROLOGIC: Denies headache, numbness, or weakness. PSYCHIATRIC: Denies anxiety or depression. All other systems reviewed are negative, except as documented in HPI. [facility] Past Medical History Medical History Fracture of tibia and fibula, open Anxiety ORIF Seizures Myocardial infarction x2 Surgical History Surgical History Hx of cholecystectomy History of coronary artery stent placement H/O wrist surgery right X2 pinning Social History Social History Smoking packs per day: 1 Smoking cigarettes per day: 20.0 Years smoked: 26 Smoking pack-years: 26.00 Smoking status: Current every day smoker Tobacco type: cigarettes Alcohol intake: unknown Substance use type: does not use Gender identity (if verbalized by the patient): Female Comments At the time of my signature, I reviewed and agree with the nursing past medical, surgical, social, and family history. There is no relevant family history pertinent to the patient complaint. Exam Narrative: GENERAL: This is a well-nourished, well-developed adult, in no apparent distress. They are non ill-appearing, nontoxic appearing. HEAD: normocephalic, atraumatic. EYES: Sclera clear/white. Conjunctiva normal. Vision is grossly intact. Extraocular movements intact EARS: External ears normal, Hearing grossly intact. NOSE: External nose normal THROAT: Mucous membranes moist, NECK: Neck supple, non-tender without lymphadenopathy, masses or thyromegaly. CARDIOVASCULAR: Regular rate and rhythm without murmurs, gallops, or rubs. RESPIRATORY: Clear to auscultation. Breath sounds equal bilaterally. No wheezes, rales, or rhonchi. GASTROINTESTINAL: Abdomen soft, non-tender, nondistended. Bowel sounds are active. No hepato-splenomegaly, or palpable masses. No guarding rigidity. SKIN: warm, Dry, intact with no suspicious lesions or rash, good texture and turgor. NEURO: awake, alert, and oriented to person, place and time. There were no obvious focal neurologic abnormalities. EXTREMITIES: No joint tenderness, effusion, or edema noted. BACK: Nontender without deformity. Right CVA tenderness. Course Course Level of Care: Express Care Visit Vital Signs Vital signs: Vital Signs Temperature 97.2 F L 04/24/25 13:41 Pulse Rate 56 L 04/24/25 13:41 Respiratory Rate 16 04/24/25 13:41 Blood Pressure 104/66 04/24/25 13:41 Pulse Oximetry 99 04/24/25 13:41 Oxygen Delivery Room Air 04/24/25 13:41 Temperature 97.2 F L 04/24/25 13:41 Pulse Rate 56 L 04/24/25 13:41 Respiratory Rate 16 04/24/25 13:41 Blood Pressure 104/66 04/24/25 13:41 Pulse Oximetry 99 04/24/25 13:41 Oxygen Delivery Room Air 04/24/25 13:41 [facility] Narrative Medical decision making narrative: Urine dipstick without any evidence of infection, urine cultures pending. Patient has right CVA tenderness. Clinical concern for upper urinary tract infection. Will treat with Bactrim. Discussed physical exam findings. Advised supportive measures and signs/symptoms to go to the ER. Pt is appropriate for outpt treatment and f/u. Differential Diagnosis Differential Diagnosis: Urinary tract infection, kidney stone, pyelonephritis, upper urinary tract infection, muscle skeletal injury Lab Data [facility] Lab Attestation statement: I personally reviewed the patient's lab results. Labs: Lab Results 04/24/25 Range/Units 13:04 POC Urine Color Yellow POC Urine Clarity Clear POC Urine pH 7.0 POC Ur Specif [facility] 1.010 POC Urine Protein Negative (Negative) POC Ur Glucose (UA) Negative (Negative) POC Urine Ketones Negative (Negative) POC Urine Blood Negative (Negative) POC Urine Nitrite Negative (Negative) POC Urine Bilirubin Negative (Negative) POC Urine Urobilinogen 0.2 POC U Leukocyte Esteras Negative (Negative) Critical Care Time Critical Care Time Critical Care Time: No Discharge Plan Discharge Clinical Impression: Urinary tract infection Qualifiers: Urinary tract infection type: site unspecified Hematuria presence: without hematuria Qualified Code(s): N39.0 - Urinary tract infection, site not specified Patient Disposition: Home Condition: Stable Instructions: Antibiotic Form, Urinary Tract Infection in Women (ED) Additional Instructions: Take the antibiotic as prescribed The urine will be sent of for a culture to identify what type of bacteria is causing your infection. If the culture shows that the antibiotic will not get rid of your infection, you will be notified and a new antibiotic will be called in for you. Increase water intake you will need to follow up with your PCP 3-5 days. Go to the ER for any worsening symptoms, abdominal pain, weakness, worsening flank pain, fevers, nausea, vomiting, or any other serious concerns Patient Language: [place] Prescriptions: New sulfamethoxazole-trimethoprim [Bactrim DS] 800-160 mg tablet 1 tablet PO Q12H 7 Days Qty: 14 0RF No Action norethindrone (contraceptive) [Incassia] 0.35 mg tablet 0.35 mg PO DAILY isosorbide mononitrate 30 mg tablet extended release 24 hr 90 mg PO DAILY nebivolol 5 mg tablet 5 mg PO DAILY escitalopram oxalate 20 mg tablet 20 mg PO DAILY carbamazepine 200 mg tablet buspirone 10 mg tablet nitroglycerin 0.4 mg tablet, sublingual albuterol sulfate 90 mcg/actuation HFA aerosol inhaler INHALATION bupropion HCl 150 mg tablet extended release 24 hr PO Follow-up/Referrals: Harms,Dex Workman M.D. [Primary Care Provider] Stand Alone Forms: Work/School Release IP Time of Disposition: 13:40
== END 2025-04-24 13:47 | disposition home or self-care (01) ==
PROVIDERS: PCP Family Medicine
DX: N39.0 Urinary tract infection, site not specified (principal); F17.210 Nicotine dependence, cigarettes, uncomplicated; G40.909 Epilepsy, unspecified, not intractable, without status epilepticus; F41.9 Anxiety disorder, unspecified; I25.2 Old myocardial infarction
CPT/HCPCS: 81003; 87086; 99213; G0463